=== PATIENT | male | born 1945 | race Caucasian/White ===

== ENCOUNTER 2018-02-05 13:09 | Inpatient (IN) | payer MEDICARE, OTHER ==
[~2018-02-05] VITALS: Ht 160 cm; Wt 52.2 kg
[2018-02-05] MEDS ORDERED: POTA10CA43 PO (13:23)
[2018-02-05] MEDS ORDERED: FURO-152 PO (13:23)
[2018-02-05] MEDS ORDERED: HYDR453. TP (13:23)
[2018-02-05] MEDS ORDERED: TAMS0.4C34 PO (13:23)
[2018-02-05] MEDS ORDERED: HYDR30CR99 (13:23)
[2018-02-05] MEDS ORDERED: diphenhydrAMINE 50 MG/1 ML VIAL IV ONE (14:15)
[2018-02-05] MEDS ORDERED: METOCLOPRAMIDE HCL 10 MG/2 ML VIAL IV ONE (14:15)
[2018-02-05] MEDS ORDERED: IV NORMAL SALINE 1000 ML BAG IV ONE (14:15)
[2018-02-05] MEDS ORDERED: KETOROLAC TROMETHAMINE 15 MG INJ IVP ONE (14:15)
[2018-02-05 14:20] LABS: BASOPHILS % (AUTO) 0.5 % (0.0-2.0); EOSINOPHILS # (AUTO) 0.1 K/uL (0.0-0.7); EOSINOPHILS % (AUTO) 1.3 % (0.0-7.0); HEMATOCRIT 40.8 % (36.7-47.1); HEMOGLOBIN 13.8 g/dL (12.5-16.3); LYMPHOCYTES # (AUTO) 1.4 K/uL (20.0-40.0); LYMPHOCYTES % (AUTO) 18.1 % (20.5-51.5); MEAN CORPUSCULAR HEMOGLOBIN 28.4 uug (23.8-33.4); MEAN CORPUSCULAR HGB CONC 34 g/dL (32.5-36.3); MEAN CORPUSCULAR VOLUME 84.2 fL (73.0-96.2); MONOCYTES # (AUTO) 0.6 K/uL (2.0-10.0); MONOCYTES % (AUTO) 7.7 % (0.0-11.0); NEUTROPHILS # (AUTO) 5.7 K/uL (1.8-8.9); NEUTROPHILS % (AUTO) 72.4 % (38.5-71.5); PLATELET COUNT (AUTO) 311 K/uL (152-348); RED BLOOD CELL COUNT(AUTO) 4.85 MIL/uL (4.06-5.63); WHITE BLOOD COUNT (AUTO) 7.9 K/uL (3.6-10.2)
[2018-02-05 14:27] LABS: CARBON DIOXIDE 28 mmol/L (21-32); CHLORIDE 86 mmol/L (98-107); CREATININE 0.9 mg/dL (0.6-1.3); POTASSIUM 4.1 mmol/L (3.5-5.1); UREA NITROGEN, BLOOD 15 mg/dL (7-18)
[2018-02-05 14:36] LABS: GLUCOSE 358 mg/dL (74-106)
[2018-02-05] MEDS ORDERED: KETOROLAC TROMETHAMINE 15 MG INJ ONE (14:40)
[2018-02-05] MEDS ORDERED: METOCLOPRAMIDE HCL 10 MG/2 ML VIAL ONE (14:40)
[2018-02-05] MEDS ORDERED: diphenhydrAMINE 50 MG/1 ML VIAL ONE (14:40)
--- NOTE | 2018-02-05 15:20 | NUR ---
Per pt to be admitted to m/s, Whitney Leiva NP has accepted the patient. SBAR report given to Randy ESCALERA via telephone. Pt resting with no s/s of distress noted at this time.
[2018-02-05] MEDS ORDERED: MAGNESIUM HYDROXIDE 30 ML LIQUID UDC PO PRN (16:15)
[2018-02-05] MEDS ORDERED: ONDANSETRON 4 MG/2 ML VIAL IV PRN (16:15)
[2018-02-05] MEDS ORDERED: Z GUARD REMEDY PASTE 57 GM TUBE TOP PRN (16:15)
--- NOTE | 2018-02-05 16:16 | NUR ---
Pt trans to m/s, NAD noted.
[2018-02-05] MEDS ORDERED: IV NORMAL SALINE 250 ML BAG IV ONE (16:17)
[2018-02-05] MEDS ORDERED: IV NORMAL SALINE 250 ML IV ONE (16:30)
[2018-02-05] MEDS ORDERED: INSULIN REGULAR, HUMAN 300 UNITS/3 ML VIAL SQ PRN (16:30)
[2018-02-05] MEDS ORDERED: DEXTROSE 50% 50 ML DISP.SYRIN IV PRN (16:30)
[2018-02-05] MEDS ORDERED: HYDROCORTISONE 2.5 % RECTAL CREAM 28.35 GM TUBE RC SCH (16:30)
[2018-02-05] MEDS: IV NS 1000 ML 1,000 ML IV PRN (16:38)
--- NOTE | 2018-02-05 16:43 | NUR ---
Admitted pt.to room 218 to TELE ,no s/s of acute distress, c/o on pain in the head was medicated with [place].
[2018-02-05] MEDS: HYDROCODONE/APAP 5-325MG TABLET PO PRN (16:46)
[2018-02-05] MEDS: BLOOD SUGAR DIAGNOSTIC 1 EACH STRIP VI SCH ×2 (16:56→20:28)
[2018-02-05] MEDS: INSULIN REGULAR, HUMAN 300 UNIT/3 ML VIAL SQ PRN ×2 (16:57→20:36)
[2018-02-05] MEDS ORDERED: HYDROCORTISONE 2.5 % RECTAL CREAM 28.35 GM TUBE RC PRN (17:00)
[2018-02-05 17:12] VITALS: BP 123/67
[2018-02-05 19:00] VITALS: BP 113/62
[2018-02-05 20:19] LABS: CARBON DIOXIDE 26 mmol/L (21-32); CHLORIDE 94 mmol/L (98-107); CREATININE 0.7 mg/dL (0.6-1.3); GLUCOSE 137 mg/dL (74-106); POTASSIUM 3.6 mmol/L (3.5-5.1); UREA NITROGEN, BLOOD 11 mg/dL (7-18)
[2018-02-05] MEDS: TAMSULOSIN HCL 0.4 MG CAP.SR.24H PO SCH (20:28)
[2018-02-05] MEDS: TEMAZEPAM 7.5 MG CAPSULE PO PRN (20:28)
--- NOTE | 2018-02-05 21:38 | NUR ---
RECEIVED PATIENT IN BED ALERT, ORIENTED, SPEAK KHMER, BUT UNDERSTAND STATELESS, KEPT COMFORTABLE. CALL LIGHT WITHIN REACH.
[2018-02-06] VITALS: BP 96/46
[2018-02-06 04:00] VITALS: BP 109/62
[2018-02-06] MEDS: HYDROCODONE/APAP 5-325MG TABLET PO PRN ×2 (05:24→09:04)
[2018-02-06 06:10] LABS: BASOPHILS % (AUTO) 0.5 % (0.0-2.0); EOSINOPHILS # (AUTO) 0.2 K/uL (0.0-0.7); EOSINOPHILS % (AUTO) 2.7 % (0.0-7.0); HEMATOCRIT 34.4 % (36.7-47.1); HEMOGLOBIN 11.8 g/dL (12.5-16.3); LYMPHOCYTES # (AUTO) 1.5 K/uL (20.0-40.0); LYMPHOCYTES % (AUTO) 26.4 % (20.5-51.5); MEAN CORPUSCULAR HGB CONC 34 g/dL (32.5-36.3); MEAN CORPUSCULAR VOLUME 81.9 fL (73.0-96.2); MONOCYTES # (AUTO) 0.4 K/uL (2.0-10.0); MONOCYTES % (AUTO) 7.6 % (0.0-11.0); NEUTROPHILS # (AUTO) 3.5 K/uL (1.8-8.9); NEUTROPHILS % (AUTO) 62.8 % (38.5-71.5); PLATELET COUNT (AUTO) 267 K/uL (152-348); WHITE BLOOD COUNT (AUTO) 5.6 K/uL (3.6-10.2)
[2018-02-06] MEDS: BLOOD SUGAR DIAGNOSTIC 1 EACH STRIP VI SCH ×4 (06:10→20:40)
[2018-02-06 06:21] LABS: ALANINE AMINOTRANSFERASE 34 U/L (16-63); ALKALINE PHOSPHATASE 71 U/L (50-136); ASPARTATE AMINOTRANSFERASE 16 U/L (15-37); BILIRUBIN,TOTAL 0.4 mg/dL (0.2-1.0); CARBON DIOXIDE 26 mmol/L (21-32); CHLORIDE 95 mmol/L (98-107); CHOLESTEROL 161 mg/dL (<200); CREATININE 0.5 mg/dL (0.6-1.3); GLUCOSE 225 mg/dL (74-106); HDL CHOLESTEROL 66 mg/dL (40-60); POTASSIUM 3.8 mmol/L (3.5-5.1); TOTAL PROTEIN, SERUM 6.2 g/dL (6.4-8.2); TRIGLYCERIDES 66 MG/DL (30-150); UREA NITROGEN, BLOOD 9 mg/dL (7-18)
[2018-02-06 06:29] LABS: MAGNESIUM 1.2 mg/dL (1.8-2.4)
--- NOTE | 2018-02-06 07:13 | NUR ---
PATIENT SLEPT MOST OF THE NIGHT, CONT ON PAIN MANAGEMENT DUE TO HEADACHES. NOTIFY RENE Garcia NP MAG. 1.20 LEVEL, RENE SAID HE WILL ORDER SOME THING.
--- NOTE | 2018-02-06 07:30 | NUR ---
Sleeping, appears comfortable. IVF infusing. Tele SR.
[2018-02-06] MEDS ORDERED: MAGNESIUM SULFATE 1 GM in IV DEXTROSE 5% 50 ML IV ONE (07:45)
[2018-02-06] MEDS: INSULIN REGULAR, HUMAN 300 UNIT/3 ML VIAL SQ PRN ×3 (08:57→17:46)
[2018-02-06] MEDS ORDERED: HYDROCORTISONE 1% CREAM 30 GM TUBE TP SCH (09:00)
[2018-02-06] MEDS ORDERED: FUROSEMIDE 20 MG TABLET PO SCH (09:00)
[2018-02-06] MEDS ORDERED: POTASSIUM CHLORIDE 8 MEQ TAB.PRT.SR PO SCH (09:00)
[2018-02-06] MEDS ORDERED: POTASSIUM CHLORIDE 10 MEQ TAB.PRT.SR PO SCH (09:00)
[2018-02-06] MEDS: IV NS 1000 ML 1,000 ML IV PRN (09:04)
--- NOTE | 2018-02-06 09:04 | NUR ---
Complaining of headache. [place] po given
[2018-02-06] MEDS: risperiDONE 0.5 MG TABLET PO SCH ×2 (11:03→20:28)
[2018-02-06] MEDS: ESCITALOPRAM OXALATE 10 MG TABLET PO SCH (11:03)
[2018-02-06] MEDS: ACETAMINOPHEN 325 MG TABLET PO PRN (11:03)
--- NOTE | 2018-02-06 11:03 | NUR ---
Still with headache, [place] po ineffective. Tylenol po given per Arsenio WAFER POLISHER
[2018-02-06 11:15] VITALS: BP 128/70
[2018-02-06 11:33] LABS: *BILIRUBIN,URIN NEGATIVE (NEGATIVE); *BLOOD, URINE NEGATIVE (NEGATIVE); *CLARITY,URINE CLEAR (CLEAR); *COLOR,URINE YELLOW (YELLOW); *KETONES,URINE 2+ (NEGATIVE); *PROTEIN,URINE NEGATIVE (NEGATIVE); *UROBILINOGEN,URINE 0.2 E.U./dl (NORMAL); LEUKOCYTE ESTERASE ,URINE NEGATIVE (NEGATIVE); NITRITE, URINE NEGATIVE (NEGATIVE); UGLUCOSE 2+ (NEGATIVE)
[2018-02-06 11:39] LABS: *CREATININE,URINE 17.4 mg/dL (30-125); *URINE TOTAL PROTEIN RANDOM < 6.0 mg/dL (<150/24HR)
[2018-02-06 11:41] LABS: RBC,URINE 0-3 /HPF (0-3); WBC,URINE 0-3 /HPF (0-3)
[2018-02-06 11:42] LABS: BACTERIA,URINE NONE SEEN /HPF (NONE SEEN); SQUAMOUS EPITHELIAL CELL,UR NONE SEEN /HPF (NONE SEEN)
[2018-02-06 15:20] VITALS: BP 148/73
[2018-02-06] MEDS: MORPHINE SULFATE 2 MG/1 ML DISP.SYRIN IV PRN (17:43)
--- NOTE | 2018-02-06 18:20 | NUR ---
[place] and Tylenol ineffective for the headache. Morphine 1 mg IV given with relief.
--- NOTE | 2018-02-06 19:35 | NUR ---
PATIENT ALERT ORIENTED, NO SOB NO CHEST PAIN NOTED, CONT ON PAIN MANAGEMENT DUE TO HEADACHES, CONT TO MONITOR.
[2018-02-06 20:22] VITALS: BP 112/67
[2018-02-06] MEDS: TAMSULOSIN HCL 0.4 MG CAP.SR.24H PO SCH (20:28)
[2018-02-06] MEDS: TEMAZEPAM 7.5 MG CAPSULE PO PRN (21:47)
[2018-02-07] MEDS: IV NS 1000 ML 1,000 ML IV PRN (02:53)
[2018-02-07 04:00] VITALS: BP 124/71
[2018-02-07] MEDS: BLOOD SUGAR DIAGNOSTIC 1 EACH STRIP VI SCH ×4 (06:24→20:48)
[2018-02-07 06:36] VITALS: BP 124/71
[2018-02-07 06:44] LABS: BASOPHILS % (AUTO) 0.8 % (0.0-2.0); EOSINOPHILS # (AUTO) 0.1 K/uL (0.0-0.7); EOSINOPHILS % (AUTO) 2.8 % (0.0-7.0); HEMATOCRIT 37.5 % (36.7-47.1); HEMOGLOBIN 12.5 g/dL (12.5-16.3); LYMPHOCYTES # (AUTO) 1.3 K/uL (20.0-40.0); LYMPHOCYTES % (AUTO) 31.3 % (20.5-51.5); MEAN CORPUSCULAR HEMOGLOBIN 27.9 uug (23.8-33.4); MEAN CORPUSCULAR HGB CONC 33 g/dL (32.5-36.3); MEAN CORPUSCULAR VOLUME 83.9 fL (73.0-96.2); MONOCYTES # (AUTO) 0.4 K/uL (2.0-10.0); MONOCYTES % (AUTO) 8.5 % (0.0-11.0); NEUTROPHILS # (AUTO) 2.4 K/uL (1.8-8.9); NEUTROPHILS % (AUTO) 56.6 % (38.5-71.5); PLATELET COUNT (AUTO) 284 K/uL (152-348); RED BLOOD CELL COUNT(AUTO) 4.48 MIL/uL (4.06-5.63); WHITE BLOOD COUNT (AUTO) 4.3 K/uL (3.6-10.2)
[2018-02-07 06:55] LABS: ALANINE AMINOTRANSFERASE 33 U/L (16-63); ALKALINE PHOSPHATASE 77 U/L (50-136); ASPARTATE AMINOTRANSFERASE 14 U/L (15-37); BILIRUBIN,TOTAL 0.4 mg/dL (0.2-1.0); CARBON DIOXIDE 26 mmol/L (21-32); CHLORIDE 95 mmol/L (98-107); CREATINE KINASE, TOTAL 33 U/L (39-308); CREATININE 0.6 mg/dL (0.6-1.3); GLUCOSE 263 mg/dL (74-106); MAGNESIUM 1.6 mg/dL (1.8-2.4); PHOSPHOROUS 3.4 mg/dL (2.5-4.9); POTASSIUM 3.9 mmol/L (3.5-5.1); TOTAL PROTEIN, SERUM 6.6 g/dL (6.4-8.2); UREA NITROGEN, BLOOD 7 mg/dL (7-18)
--- NOTE | 2018-02-07 07:15 | NUR ---
PATIENT SLEPT MOST OF THE NIGHT, NO SOB NO CHEST PAIN, ASSIST WITH TOILETING, CONT TO MONITOR.
--- NOTE | 2018-02-07 08:00 | NUR ---
AWAKE COOPERATE STATE H/A GO DOWN LESS THAN BEFORE ON FALL PRECAUTION CALL LIGHT IN REACH AND BED ALARM ON CONTINUE IVF
[2018-02-07] MEDS: risperiDONE 0.5 MG TABLET PO SCH ×2 (08:23→20:40)
[2018-02-07] MEDS: ACETAMINOPHEN 325 MG TABLET PO PRN (08:23)
[2018-02-07] MEDS: ESCITALOPRAM OXALATE 10 MG TABLET PO SCH (08:24)
[2018-02-07] MEDS: INSULIN REGULAR, HUMAN 300 UNIT/3 ML VIAL SQ PRN ×3 (08:29→17:37)
[2018-02-07 11:27] VITALS: BP 111/59
[2018-02-07] MEDS ORDERED: MAGNESIUM SULFATE/D5W 100 ML IV SCH (11:45)
[2018-02-07] MEDS: HYDROCODONE/APAP 5-325MG TABLET PO PRN ×2 (14:14→19:10)
[2018-02-07 15:46] VITALS: BP_SYST 108; BP_SYST 111; BP_SYST 145; BP_DIAS 59; BP_DIAS 62; BP_DIAS 75
--- NOTE | 2018-02-07 18:00 | NUR ---
STABLE HEMODYNAMIC STATUS ,PAIN UNDER CONTROL SAFETY MEASURE PROVIDED CALL LIGHT IN REACH
[2018-02-07 20:16] VITALS: BP 139/61
[2018-02-07] MEDS: TAMSULOSIN HCL 0.4 MG CAP.SR.24H PO SCH (20:40)
[2018-02-07] MEDS: TEMAZEPAM 7.5 MG CAPSULE PO PRN (20:41)
[2018-02-07] MEDS ORDERED: INSULIN GLARGINE,HUM 300 UNITS/3 ML CARTRIDGE SQ SCH (21:00)
[2018-02-08] MEDS: IV NS 1000 ML 1,000 ML IV PRN (01:27)
[2018-02-08 04:48] VITALS: BP 132/63
[2018-02-08] MEDS: HYDROCODONE/APAP 5-325MG TABLET PO PRN ×3 (06:07→17:05)
[2018-02-08 06:14] LABS: BASOPHILS % (AUTO) 0.4 % (0.0-2.0); EOSINOPHILS # (AUTO) 0.1 K/uL (0.0-0.7); EOSINOPHILS % (AUTO) 1.7 % (0.0-7.0); HEMATOCRIT 36.8 % (36.7-47.1); HEMOGLOBIN 12.3 g/dL (12.5-16.3); LYMPHOCYTES # (AUTO) 1.6 K/uL (20.0-40.0); LYMPHOCYTES % (AUTO) 28.1 % (20.5-51.5); MEAN CORPUSCULAR HGB CONC 34 g/dL (32.5-36.3); MEAN CORPUSCULAR VOLUME 83.4 fL (73.0-96.2); MONOCYTES # (AUTO) 0.4 K/uL (2.0-10.0); MONOCYTES % (AUTO) 7.2 % (0.0-11.0); NEUTROPHILS # (AUTO) 3.6 K/uL (1.8-8.9); NEUTROPHILS % (AUTO) 62.6 % (38.5-71.5); PLATELET COUNT (AUTO) 305 K/uL (152-348); RED BLOOD CELL COUNT(AUTO) 4.41 MIL/uL (4.06-5.63); WHITE BLOOD COUNT (AUTO) 5.7 K/uL (3.6-10.2)
[2018-02-08 06:39] LABS: CARBON DIOXIDE 29 mmol/L (21-32); CHLORIDE 97 mmol/L (98-107); CREATININE 0.6 mg/dL (0.6-1.3); GLUCOSE 174 mg/dL (74-106); MAGNESIUM 1.6 mg/dL (1.8-2.4); PHOSPHOROUS 4.1 mg/dL (2.5-4.9); UREA NITROGEN, BLOOD 8 mg/dL (7-18)
[2018-02-08] MEDS: BLOOD SUGAR DIAGNOSTIC 1 EACH STRIP VI SCH ×3 (06:45→17:05)
--- NOTE | 2018-02-08 08:00 | NUR ---
AWAKE COOPERATE WELL STATE H/A LESS BUT PAIN MORE AROUND THE MOUTH RESTING WELL WITH CALL LIGHT IN REACH
[2018-02-08] MEDS: INSULIN REGULAR, HUMAN 300 UNIT/3 ML VIAL SQ PRN ×3 (08:10→17:11)
[2018-02-08] MEDS: risperiDONE 0.5 MG TABLET PO SCH (08:25)
[2018-02-08] MEDS: ESCITALOPRAM OXALATE 10 MG TABLET PO SCH (08:25)
[2018-02-08] MEDS: ACETAMINOPHEN 325 MG TABLET PO PRN (08:26)
[2018-02-08] MEDS ORDERED: MAGNESIUM OXIDE 400 MG TABLET PO ONE (09:00)
[2018-02-08] MEDS ORDERED: BENZTROPINE MESYLATE 1 MG TABLET PO SCH (09:45)
--- NOTE | 2018-02-08 10:00 | NUR ---
DR PAREDES HERE SEEN PATIENT AND PATIENT CONDITION INFORM NEW MEDICATION ADD ON STATE HE WAS CLEAR TO DISCHARGE HOME TODAY
[2018-02-08] MEDS: MORPHINE SULFATE 2 MG/1 ML DISP.SYRIN IV PRN (11:33)
[2018-02-08 11:45] VITALS: BP 169/78
[2018-02-08 13:06] LABS: A/G RATIO 1.2 (0.7-1.7); ALBUMIN 3.1 g/dL (2.9-4.4); ALPHA-1-GLOBULIN 0.2 g/dL (0.0-0.4); ALPHA-2-GLOBULIN 0.8 g/dL (0.4-1.0); BETA GLOBULIN 0.9 g/dL (0.7-1.3); GAMMA GLOBULIN 0.7 g/dL (0.4-1.8); GLOBULIN, TOTAL 2.6 g/dL (2.2-3.9); M-SPIKE 0.1 g/dL (Not Observed)
[2018-02-08 15:36] VITALS: BP 138/72
[2018-02-08] MEDS ORDERED: Magnesium Oxide PO (16:10)
[2018-02-08] MEDS ORDERED: TRAM50TA PO (16:10)
--- NOTE | 2018-02-08 16:30 | NUR ---
D/C INSTRUCTION REGARDING F/U WITH PMD CONTINUE HOME MEDICINE ORDER AND PRECRIPTION EDUCATION PK GIVEN ,VERBALIZES UNDERSTAND AND SIGNS D/C SHEET HL WAS D/C PRIOR D/C HOME TODAY FAMILY [id number] WAS INFORM OF PATIENT DISCHARGE TODAY
--- NOTE | 2018-02-08 16:45 | NUR ---
PHAMACY WAS INSTRUCTION PRECRIPTION AND HOME MEDICINE PRIOR DISCHARGE TODAY ,UNDERSTAND
--- NOTE | 2018-02-08 17:00 | NUR ---
D/C TO [facility] ,CONDITION STABLE
== END 2018-02-08 17:50 | DRG 638 ==
LOC: ER 13:11 → MED 16:08 → TELE 17:23 → MED 02-06 17:20
PROVIDERS: ADMIT Nurse Practitioner Acute Care; ATTEND Nurse Practitioner Acute Care
DX: E11.65 Type 2 diabetes mellitus with hyperglycemia (principal); E87.1 Hypo-osmolality and hyponatremia; F33.3 Major depressive disorder, recurrent, severe with psychotic symptoms; E86.0 Dehydration; T50.1X5A Adverse effect of loop [high-ceiling] diuretics, initial encounter; Y92.009 Unspecified place in unspecified non-institutional (private) residence as the place of occurrence of the external cause; N40.0 Benign prostatic hyperplasia without lower urinary tract symptoms; E83.42 Hypomagnesemia; R51 Headache; D49.7 Neoplasm of unspecified behavior of endocrine glands and other parts of nervous system
CPT/HCPCS: 36415; 70450; 83735; 83970; 84100; 84155; 84156; 84165; 84300; 85025; 93005; A4663; J1200; J1815; J1885; J2270; J2765; J3475; J7030; J7050; J7060

== ENCOUNTER 2019-09-04 12:15 | Inpatient (IN) | payer MEDICARE, OTHER ==
[~2019-09-04] VITALS: Ht 154.9 cm; Wt 59.9 kg
[~2019-09-04 12:15] MED LIST: FURO-152 PO; HYDR30CR99; HYDR453. TP; Magnesium Oxide PO; POTA10CA43 PO; TAMS0.4C34 PO; TRAM50TA PO
[2019-09-04] MEDS ORDERED: HC A30CR12 TP (12:43)
[2019-09-04] MEDS ORDERED: BENA20TA78 PO (12:43)
[2019-09-04] MEDS ORDERED: SITA100T PO (12:43)
[2019-09-04] MEDS ORDERED: AMLO2.5T2 PO (12:43)
[2019-09-04] MEDS ORDERED: HYDR30CR10 TP (12:43)
[2019-09-04] MEDS ORDERED: DOCU-141 PO (12:43)
[2019-09-04] MEDS ORDERED: RISP2TAB5 PO (12:43)
[2019-09-04] MEDS ORDERED: HYDR28.316 RC (12:43)
[2019-09-04] MEDS ORDERED: DICY20TA11 PO (12:43)
[2019-09-04] MEDS ORDERED: GABA300C PO (12:43)
[2019-09-04] MEDS ORDERED: GLIP10TA11 PO (12:43)
[2019-09-04] MEDS ORDERED: TEMA30CA5 PO (12:43)
[2019-09-04] MEDS ORDERED: RISP3TAB5 PO (12:43)
[2019-09-04] MEDS ORDERED: [UNRECOGNIZED DRUG - CODE] PO (12:43)
[2019-09-04] MEDS ORDERED: OMEP40CA13 PO (12:43)
[2019-09-04 12:54] LABS: BASOPHILS % (AUTO) 0.5 % (0.0-2.0); EOSINOPHILS # (AUTO) 0.2 K/uL (0.0-0.7); EOSINOPHILS % (AUTO) 2.8 % (0.0-7.0); HEMATOCRIT 29.1 % (36.7-47.1); HEMOGLOBIN 9.3 g/dL (12.5-16.3); LYMPHOCYTES # (AUTO) 1.5 K/uL (20.0-40.0); LYMPHOCYTES % (AUTO) 21.2 % (20.5-51.5); MEAN CORPUSCULAR HEMOGLOBIN 22.1 uug (23.8-33.4); MEAN CORPUSCULAR HGB CONC 32 g/dL (32.5-36.3); MEAN CORPUSCULAR VOLUME 69.4 fL (73.0-96.2); MONOCYTES # (AUTO) 0.4 K/uL (2.0-10.0); MONOCYTES % (AUTO) 6.6 % (0.0-11.0); NEUTROPHILS # (AUTO) 4.7 K/uL (1.8-8.9); NEUTROPHILS % (AUTO) 68.9 % (38.5-71.5); PLATELET COUNT (AUTO) 364 K/uL (152-348); RED BLOOD CELL COUNT(AUTO) 4.19 MIL/uL (4.06-5.63); WHITE BLOOD COUNT (AUTO) 6.8 K/uL (3.6-10.2)
--- NOTE | 2019-09-04 13:02 | NUR ---
PATIENT IS IN ROOM 3. HE IS AWAKE AND ALERT. HE STATES HIS GROIN AREA HURTS AT TIMES. DR CONTE AWARE.
[2019-09-04 13:06] LABS: CARBON DIOXIDE 31 mmol/L (21-32); CHLORIDE 98 mmol/L (98-107); CREATININE 0.8 mg/dL (0.6-1.3); GLUCOSE 266 mg/dL (74-106); POTASSIUM 4.6 mmol/L (3.5-5.1); UREA NITROGEN, BLOOD 11 mg/dL (7-18)
[2019-09-04 13:16] LABS: ETHANOL < 3 MG/DL (0-0)
[2019-09-04 13:18] LABS: ALANINE AMINOTRANSFERASE 35 U/L (16-63); ALKALINE PHOSPHATASE 80 U/L (50-136); ASPARTATE AMINOTRANSFERASE 29 U/L (15-37); BILIRUBIN,DIRECT 0.1 mg/dL (0.0-0.2); BILIRUBIN,TOTAL 0.3 mg/dL (0.2-1.0); TOTAL PROTEIN, SERUM 7.4 g/dL (6.4-8.2)
[2019-09-04 13:19] LABS: EOSINOPHILS % (MANUAL) 2 % (0-8); LYMPHOCYTES % (MANUAL) 22 % (20-40); MONOCYTES % (MANUAL) 5 % (2-10); NEUTROPHILS % (MANUAL) 71 % (42-75)
[2019-09-04 13:24] LABS: ACETAMINOPHEN < 2.0 ug/mL (10-30)
[2019-09-04 13:36] LABS: *BILIRUBIN,URIN NEGATIVE (NEGATIVE); *BLOOD, URINE NEGATIVE (NEGATIVE); *CLARITY,URINE SLIGHTLY CLOUDY (CLEAR); *COLOR,URINE YELLOW (YELLOW); *KETONES,URINE NEGATIVE (NEGATIVE); *UROBILINOGEN,URINE 0.2 E.U./dl (NORMAL); LEUKOCYTE ESTERASE ,URINE NEGATIVE (NEGATIVE); NITRITE, URINE NEGATIVE (NEGATIVE); PH,URINE 5.5 (5.0-8.0); UGLUCOSE NEGATIVE (NEGATIVE)
[2019-09-04 13:43] LABS: *AMPHETAMINE, URINE NEGATIVE (NEGATIVE); *BARBITURATE, URINE NEGATIVE (NEGATIVE); *CANNABINOID, URINE NEGATIVE (NEGATIVE); *COCCAINE, URINE NEGATIVE (NEGATIVE); *OPIATE, URINE NEGATIVE (NEGATIVE); *PHENCYCLIDINE SCREEN,URINE NEGATIVE (NEGATIVE)
[2019-09-04 13:52] LABS: RBC,URINE 0-3 /HPF (0-3)
[2019-09-04 13:54] LABS: BACTERIA,URINE NONE SEEN /HPF (NONE SEEN); SQUAMOUS EPITHELIAL CELL,UR FEW /HPF (NONE SEEN)
[2019-09-04] MEDS ORDERED: INSULIN REGULAR, HUMAN 300 UNIT/3 ML VIAL SQ ONE (14:15)
[2019-09-04] MEDS ORDERED: INSULIN REGULAR, HUMAN 300 UNIT/3 ML VIAL ONE (14:20)
--- NOTE | 2019-09-04 14:22 | NUR ---
PATIENT IS SITTING UP EATING LUNCH WITH NO COMPLAINTS.
--- NOTE | 2019-09-04 15:09 | NUR ---
PATIENT DRANK SOME JUICE. AWAITING TEST RESULTS
[2019-09-04] MEDS ORDERED: CEphaleXIN 500 MG CAPSULE PO ONE (16:30)
[2019-09-04] MEDS ORDERED: CEphaleXIN 500 MG CAPSULE ONE (16:37)
--- NOTE | 2019-09-04 17:29 | NUR ---
PATIENT IS SITTING UP EATING DINNER.
--- NOTE | 2019-09-04 18:13 | NUR ---
REPORT GIVEN TO GRISELDA ESCALERA
--- NOTE | 2019-09-04 18:30 | NUR ---
RECEIVED FOR ADMISSION FROM ED 74 YEARS OLD MALE BY ADELINE TO ROOM 319 WITH DX OF CYSTITIS AND ANEMIA PLACED INTO BED FIXED AND MADE COMFORTABLE PATIENT IS ALERT AND VERBALLY RESPONSIVE ORIENTED TO ROOM AND FACILITY PROTOCOL PATIENTS PERSONAL BELONGINGS PLACED IN THE CONTRABAND LOCKER PER PROTOCOL AT THIS TIME.ON ROOM AIR WITH NO SOB ADMISSION OF THIS PATIENT WILL BE ENDORSED TO ONCOMING SHIFT.
[2019-09-04 18:33] VITALS: BP 122/51
--- NOTE | 2019-09-04 19:15 | NUR ---
RECEIVED PATIENT IN BED, AWAKE. 1:1 SITTER AT BEDSIDE. PATIENT IS CONFUSED BUT FOLLOWS COMMANDS AND IS ABLE TO MAKE NEEDS KNOW. NO SHORTNESS OF BREATH, OR DISTRESS NOTED. COMFORT PROVIDED, IMMEDIATE NEEDS ATTENDED. SAFETY PRECAUTIONS IN PLACE. WILL CONTINUE TO MONITOR.
[2019-09-04] MEDS ORDERED: ACETAMINOPHEN 325 MG TABLET PO PRN (20:15)
[2019-09-04] MEDS ORDERED: DEXTROSE 50% 50 ML DISP.SYRIN IV PRN (20:15)
[2019-09-04] MEDS: BLOOD SUGAR DIAGNOSTIC 1 EACH STRIP VI SCH (21:36)
[2019-09-04] MEDS: risperiDONE 1 MG TABLET PO SCH (21:37)
[2019-09-04] MEDS: INSULIN REGULAR, HUMAN 300 UNIT/3 ML VIAL SQ PRN (21:41)
[2019-09-04] MEDS: CEFTRIAXONE 1 G in IV DEXTROSE 5% 50 ML IV SCH (22:20)
[2019-09-04] MEDS: TEMAZEPAM 15 MG CAPSULE PO PRN (22:56)
--- NOTE | 2019-09-05 05:54 | NUR ---
PATIENT SLEPT WELL THROUGHOUT THE NIGHT. 1:1 SITTER AT BEDSIDE. NO ACUTE CHANGE IN PATIENT CONDITION. TOLERATED MEDICATIONS. COMFORT PROVIDED. WILL ENDORSE ACCORDINGLY.
[2019-09-05] MEDS: PANTOPRAZOLE SODIUM 40 MG TABLET.DR PO SCH (06:03)
[2019-09-05 06:18] LABS: BASOPHILS % (AUTO) 0.7 % (0.0-2.0); EOSINOPHILS # (AUTO) 0.3 K/uL (0.0-0.7); EOSINOPHILS % (AUTO) 5.3 % (0.0-7.0); HEMATOCRIT 31.3 % (36.7-47.1); HEMOGLOBIN 9.8 g/dL (12.5-16.3); LYMPHOCYTES # (AUTO) 1.7 K/uL (20.0-40.0); LYMPHOCYTES % (AUTO) 26.7 % (20.5-51.5); MEAN CORPUSCULAR HEMOGLOBIN 21.7 uug (23.8-33.4); MEAN CORPUSCULAR HGB CONC 31 g/dL (32.5-36.3); MEAN CORPUSCULAR VOLUME 69.5 fL (73.0-96.2); MONOCYTES # (AUTO) 0.5 K/uL (2.0-10.0); NEUTROPHILS # (AUTO) 3.7 K/uL (1.8-8.9); NEUTROPHILS % (AUTO) 59.3 % (38.5-71.5); PLATELET COUNT (AUTO) 360 K/uL (152-348); WHITE BLOOD COUNT (AUTO) 6.2 K/uL (3.6-10.2)
[2019-09-05] MEDS: BLOOD SUGAR DIAGNOSTIC 1 EACH STRIP VI SCH ×4 (06:30→21:12)
[2019-09-05 06:48] LABS: THYROID STIMULATING HORMONE 3.427 mIU/mL (0.358-3.740)
[2019-09-05 06:56] LABS: POTASSIUM 4.6 mmol/L (3.5-5.1)
[2019-09-05] MEDS: glipiZIDE 10 MG TABLET PO SCH ×2 (06:59→17:48)
[2019-09-05 07:13] LABS: BILIRUBIN,TOTAL 0.2 mg/dL (0.2-1.0); CREATININE 0.7 mg/dL (0.6-1.3); MAGNESIUM 1.7 mg/dL (1.8-2.4); PHOSPHOROUS 3.3 mg/dL (2.5-4.9); TOTAL PROTEIN, SERUM 7.4 g/dL (6.4-8.2)
--- NOTE | 2019-09-05 07:31 | NUR ---
RECEIVED PATIENT ASLEEP IN BED WITH 1: 1 SITTER FOR SAFETY. NO S/S OF ACUTE DISTRESS NOTED. NO C/O PAIN AT THIS TIME. SAFETY AND COMFORT PROVIDED . CALL LIGHT WITHIN REACH. WILL CONTINUE TO MONITOR
[2019-09-05] MEDS ORDERED: MAGNESIUM SULFATE/D5W 100 ML IV SCH (08:30)
[2019-09-05 09:00] LABS: EOSINOPHILS % (MANUAL) 4 % (0-8); LYMPHOCYTES % (MANUAL) 26 % (20-40); MONOCYTES % (MANUAL) 9 % (2-10); NEUTROPHILS % (MANUAL) 61 % (42-75)
[2019-09-05] MEDS ORDERED: Medication Not On Formulary EA (Sitagliptin Phosphate (Januvia) 100 MG) PO SCH (09:00)
[2019-09-05] MEDS: DOCUSATE SODIUM 100 MG CAPSULE PO SCH ×2 (09:40→17:48)
[2019-09-05] MEDS: METFORMIN HCL 500 MG TABLET PO SCH ×2 (09:40→17:48)
[2019-09-05] MEDS: GABAPENTIN 300 MG CAPSULE PO SCH ×2 (09:41→17:48)
[2019-09-05] MEDS: LINAGLIPTIN 5 MG TABLET PO SCH (09:41)
[2019-09-05] MEDS: risperiDONE 2 MG TABLET PO SCH (09:41)
[2019-09-05] MEDS: AMLODIPINE 2.5 MG TABLET PO SCH ×2 (09:42→21:06)
[2019-09-05] MEDS: BENAZEPRIL HCL 20 MG TABLET PO SCH ×2 (09:42→21:06)
[2019-09-05] MEDS: INSULIN REGULAR, HUMAN 300 UNIT/3 ML VIAL SQ PRN ×4 (09:45→21:18)
[2019-09-05 12:00] VITALS: BP 142/66
--- NOTE | 2019-09-05 18:45 | NUR ---
RECEIVED PATIENT ALERT AND AWAKE IN BED WITH 1: 1 SITTER FOR SAFETY. CALM AND COOPERATIVE. NO S/S OF ACUTE DISTRESS NOTED. NO C/O PAIN AT THIS TIME. SAFETY AND COMFORT PROVIDED. CALL LIGHT WITHIN REACH. WILL CONTINUE TO MONITOR
--- NOTE | 2019-09-05 20:00 | NUR ---
Patient received into care, laying in bed, resting comfortably with 1:1 sitter at bedside. Patient is alert/oriented x2 and has no complaints of pain or discomfort at this time. All safety and fall precaution measures are in place. Personal items are within reach at all times. Will continue to monitor and assess.
[2019-09-05] MEDS: CEFTRIAXONE 1 G in IV DEXTROSE 5% 50 ML IV SCH (21:00)
[2019-09-05] MEDS ORDERED: SIMVASTATIN 10 MG TABLET PO SCH (21:00)
[2019-09-05] MEDS: risperiDONE 1 MG TABLET PO SCH (21:01)
--- NOTE | 2019-09-05 21:50 | NUR ---
IV site infiltrated. IV cath removed from right forearm and ice pack applied. Will continue to monitor and assess.
[2019-09-05] MEDS: TEMAZEPAM 15 MG CAPSULE PO PRN (22:23)
[2019-09-06 04:41] VITALS: BP 116/59
--- NOTE | 2019-09-06 05:41 | NUR ---
Patient slept throughout night with 1:1 sitter at bedside. Patient was compliant with all aspects of care and medicine regime. Patient had no complaints of pain this shift, nor were there any signs/symptoms of acute distress or discomfort observed/noted by nurse. All nursing needs were met promptly. Patient is warm, dry, and comfortable. Safety and fall precaution measures remain in place. Personal items remain within reach.
[2019-09-06] MEDS: PANTOPRAZOLE SODIUM 40 MG TABLET.DR PO SCH (06:20)
[2019-09-06] MEDS: glipiZIDE 10 MG TABLET PO SCH (06:33)
[2019-09-06] MEDS: BLOOD SUGAR DIAGNOSTIC 1 EACH STRIP VI SCH ×2 (06:33→10:41)
--- NOTE | 2019-09-06 06:39 | NUR ---
Patient will not allow nurse to replace infiltrated IV cath. Will have AM shift follow-up and replace.
[2019-09-06] MEDS: INSULIN REGULAR, HUMAN 300 UNIT/3 ML VIAL SQ PRN ×2 (07:45→11:01)
[2019-09-06] MEDS: AMLODIPINE 2.5 MG TABLET PO SCH (08:11)
[2019-09-06] MEDS: GABAPENTIN 300 MG CAPSULE PO SCH (08:11)
[2019-09-06] MEDS: risperiDONE 2 MG TABLET PO SCH (08:11)
[2019-09-06] MEDS: LINAGLIPTIN 5 MG TABLET PO SCH (08:11)
[2019-09-06] MEDS: DOCUSATE SODIUM 100 MG CAPSULE PO SCH (08:11)
[2019-09-06] MEDS: METFORMIN HCL 500 MG TABLET PO SCH (08:11)
[2019-09-06] MEDS: BENAZEPRIL HCL 20 MG TABLET PO SCH (08:11)
[2019-09-06] MEDS ORDERED: LINAGLIPTIN 5 MG TABLET PO SCH (09:15)
[2019-09-06 12:00] VITALS: BP 120/62
--- NOTE | 2019-09-06 14:41 | NUR ---
dmitriy rn report given to jan fiore at [facility]
--- NOTE | 2019-09-06 15:11 | NUR ---
DC ORDERS RECEIVED NOTED AND CARRIED OUT.DC INSTRUCTION AND RN REPORT GIVEN TO [facility] ,PT LEFT THE FACILITY VIA [facility]ULANC[facility] IN STABLE CONDITION
== END 2019-09-06 15:20 | DRG 637 ==
LOC: ER 12:15 → MEDSURG3 18:04
PROVIDERS: ADMIT Internal Medicine; ATTEND Internal Medicine
DX: E11.65 Type 2 diabetes mellitus with hyperglycemia (principal); G92 Toxic encephalopathy; N39.0 Urinary tract infection, site not specified; F32.3 Major depressive disorder, single episode, severe with psychotic features; Z79.84 Long term (current) use of oral hypoglycemic drugs; K21.9 Gastro-esophageal reflux disease without esophagitis; I11.9 Hypertensive heart disease without heart failure; Z79.899 Other long term (current) drug therapy; F03.90 Unspecified dementia, unspecified severity, without behavioral disturbance, psychotic disturbance, mood disturbance, and anxiety; F41.9 Anxiety disorder, unspecified; N40.0 Benign prostatic hyperplasia without lower urinary tract symptoms; D50.9 Iron deficiency anemia, unspecified; K76.0 Fatty (change of) liver, not elsewhere classified; K40.90 Unilateral inguinal hernia, without obstruction or gangrene, not specified as recurrent; K76.89 Other specified diseases of liver; K59.00 Constipation, unspecified; G89.29 Other chronic pain; M19.90 Unspecified osteoarthritis, unspecified site
CPT/HCPCS: 36415; 70030-TC; 71045; 80307; 83550; 83735; 84100; 84443; 85025; 87086; 93005; A4663; G0378; G0480; G0480-TC; J0696; J1815; J3475; J7040; J7060